=== PATIENT | female | born 1950 | race Caucasian/White ===

== ENCOUNTER 2020-05-08 10:10 | Outpatient (REF) | payer MEDICARE, BC, SELFPAY ==
--- NOTE | 2020-05-08 08:45 | SKI_PTH ---
PATIENT: Dyan Marte [facility]: [facility][id number] AGE/SX: 70/F ROOM: RE05/08/[address]: Elliott Scott : 1950 BED: DIS: 05/08/2020 SPEC #: [id number] RECD: 05/09/20 10:56 STATUS: FIDE REQ #: [id number] JUNAID: 05/08/20 08:[address]: Elliott Scott DEPT: Surgical Specimen RECD BY: Kell Spicer ENTERED: 05/09/20 11:00 SP TYPE: SAMUEL CARO DR: Anne Rai Tissues: 1 - SKIN BIOPSY(SHAVE/PUNCH) Procedures: SKIN LEVEL 4 Comments: [id number]
== END 2020-05-08 10:30 ==
LOC: NCHCN 10:10
PROVIDERS: PCP Nurse Practitioner; Visit Provider Internal Medicine
DX: L28.0 Lichen simplex chronicus (principal)
CPT/HCPCS: 88305

== ENCOUNTER 2022-01-12 20:15 | Outpatient (REF) | payer MEDICARE, BC, SELFPAY ==
[2022-01-12 15:25] LABS: Abs Immature Grans 0.03 10^3/uL (0.0-0.06); Absolute Basophil Count 0.04 10^3/uL (0.0-0.2); Absolute Eosinophil Count 0.14 10^3/uL (0.0-0.7); Absolute Lymphocyte Count 1.19 10^3/uL (1.2-3.4); Absolute Neutrophil Count 5.98 10^3/uL (1.2-6.7); Basophils % 0.5; Eosinophils % 1.8; HCT 36.8 % (36.0-46.0); HGB 12.1 g/dL (11.2-15.7); Immature Grans % 0.4; Lymphocytes % 14.9; MCH 31.6 pg (27.0-33.0); MCHC 32.9 % (32.0-36.0); MCV 96 fL (80-95); MPV 11.3 fL (8.0-11.0); Monocytes % 7.5; Neutrophils % 74.9; Platelet Count 281 10^3/uL (130-400); RBC 3.83 10^6/uL (3.93-5.22); RDW 12.1 % (11.7-14.6); RDW-SD 42.3 fL; WBC 7.98 10^3/uL (4.4-10.8)
[2022-01-12 15:34] LABS: Anion Gap 7.7 mmol/L (3-11); BUN 9 mg/dL (7-18); CO2 30.3 mmol/L (21.0-32.0); CREATININE 0.7 mg/dL (0.55-1.02); Calcium 9.2 mg/dL (8.5-10.1); Chloride 97 mmol/L (98-107); Glucose 107 mg/dL (74-106); Potassium 4.7 mmol/L (3.5-5.1); Sodium 135 mmol/L (136-145)
[2022-01-12 16:49] LABS: ESR 40 mm/hr (0-30)
[2022-01-13 11:28] LABS: Lyme Ab w Rflx to Lyme Confirm Negative (Negative)
[2022-01-14 13:09] LABS: Anaplasma phagocytophilum Negative (Negative); B. miyamotoi PCR Negative (Negative); Babesia divergens/MO-1 Negative (Negative); Babesia duncani Negative (Negative); Babesia microti Negative (Negative); Ehrlichia chaffeensis Negative (Negative); Ehrlichia ewingii/canis Negative (Negative); Ehrlichia muris eauclairensis Negative (Negative)
== END 2022-01-12 20:16 | disposition home or self-care (01) ==
LOC: NCHCN 20:15
PROVIDERS: PCP Nurse Practitioner; Visit Provider Nurse Practitioner Family
DX: R51.9 Headache, unspecified (principal)
CPT/HCPCS: 80048; 85652; 87798; 85025; 86618

== ENCOUNTER → 2022-02-08 00:44 | Outpatient (CLI) | payer MEDICARE, BC, SELFPAY ==
--- OUTSIDE RECORDS SUMMARY | 2022-02-08 00:47 | XMS_ITS | Encounter Summary ---
:1950 Author Organization [facility] Address [address] [place] [address] Care Team Providers Name Role Phone Unavailable Primary Care Provider Unavailable Encounter Details Date Type Department Care Team Description 07/01/2008 Before PRISM Converted [facility] - Franki Rai FNP Visit (Maple) Maple conversion [address] [place], [place] [id number] [place] [address] Social History Tobacco Use Types Packs/Day Years Used Date Never Assessed Sex Assigned at Date Recorded Not on file documented as of this encounter Plan of Treatment Not on filedocumented as of this encounter Procedures Procedure Name Priority Date/Time Associated Diagnosis Comme nts CYTOPATHOLOGY Routine 07/01/2008 0:00 EST Results for this procedure are i n the results section . documented in this encounter Results CYTOPATHOLOGY (07/01/2008 0:00 EST) Pathology Report: CYTOPATHOLOGY REPORT ? [facility] ? LAB Reports generated via electr onic interface contain original data; ? however they are lacking the format of the original report. ? Caution should be taken when reading/interpreting unformatted reports. ? Name: ? JORGE L MARTE ? Accession #: ? [id number] ? : ? 1950 (Age: 58) ??F ?Collect Date: ? 07/01/2008 ? Location: ? [facility] ? Receive Date: ? 07/02/2008 ? Provider: ?FRANKI HES S [employer] FORCES WEAPONS SERGEANT ? Copy to: ? Specimen/Source: ? Pap Test, Source Not Provided, ThinPrep Imaging System ?? with manual evaluation ? Last Menstrual Period: ? 2005 ? Other: ? HPVA - HPV testing requested if ASC-US on the current ThinPrep Pap test. ? SPECIMEN ADEQUACY ? Satisfactory for Eval uation ? - transformation zone compon ent present ? GENERAL CATEGORIZATION ? Negative for Intraepi thelial Lesion or Malignancy ? Document reviewed and electr onically signed by: ? Rui Emmyler, CT( CP) ? Report Date: ??12/11/ 2008 09:48 ? End of Report ? Specimen Performing Organization Address City/State/ZIP Code Phon e Number [facility] [address] [place] [address] SERVICES [facility] [address] [place] [address] documented in this encounter Visit Diagnoses Not on filedocumented in this encounter
--- OUTSIDE RECORDS SUMMARY | 2022-02-08 00:47 | XMS_ITS | Clinical Summary ---
:[address] [facility] Address [address] [place] [address] Care Team Providers Name Role Phone RaiAnne ISABEL Primary Care Provider Encounters Date Type Specialty Care Team Description 01/12/2022 Lab Requisition Clinical Laboratory Outr Resulting Lab , Provider from Last 3 Months Social History Tobacco Use Types Packs/Day Years Used Date Never Assessed Sex Assigned at Date Recorded Not on file Plan of Treatment Health Maintenance Due Date Last Done Comments Fall Risk Screening 2015 Procedures Procedure Name Priority Date/Time Associated Diagnosis Comme nts LYME AB Routine 01/12/2022 10:40 EDT Results for this procedure are i n the results section . from Last 3 Months Results LYME AB (01/12/2022 10:40 EDT) Pathologist Sig nature Lyme Ab Negative Negative [facility] Specimen Blood - Venous blood (substance) Performing Organization Address City/State/ZIP Code Phon e Number [facility] [address] [place] [address] SERVICES from Last 3 Months Insurance Payer Benefit Plan / Subscriber ID Effective Dates Phone Addre ss Type Group MEDICARE MEDICARE A/B [id number] 2015-Presen [id number] [place] [address] [place] [id number] 2019-Presen [address] [place] [address] [place] [address] Care Teams Production Tester Relationship Specialty Start Date End Date Anne Rai FNP PCP - General 05/08/20 [address] [place] [address]
--- OUTSIDE RECORDS SUMMARY | 2022-02-08 00:47 | XMS_ITS | Encounter Summary ---
:1950 Author Organization [facility] Address [address] [place] [address] Care Team Providers Name Role Phone Unavailable Primary Care Provider Unavailable Encounter Details Date Type Department Care Team Description 07/11/2009 Orders Only [facility] Franki Rai FNP Laboratory Services - [place] [address] [address] [place], [place] [address] [phone] Social History Tobacco Use Types Packs/Day Years Used Date Never Assessed Sex Assigned at Date Recorded Not on file documented as of this encounter Plan of Treatment Not on filedocumented as of this encounter Procedures Procedure Name Priority Date/Time Associated Diagnosis Comme nts CYTOPATHOLOGY Routine 07/11/2009 0:00 EST Results for this procedure are i n the results section . documented in this encounter Results CYTOPATHOLOGY (07/11/2009 0:00 EST) Pathology Report: CYTOPATHOLOGY REPORT ? [facility] ? LAB Reports generated via electr onic interface contain original data; ? however they are lacking the format of the original report. ? Caution should be taken when reading/interpreting unformatted reports. ? Name: ? JORGE L MARTE ? Accession #: ? [id number] ? : ? 1950 (Age: 59) ??F ?Collect Date: ? 07/11/2009 ? Location: ? [facility] ? Receive Date: ? 07/15/2009 ? Provider: ?FRANKI HES S BULB ASSEMBLER ? Copy to: ? Specimen/Source: ? Pap Test, Source Not Provided, Blind Pap, ThinPrep ? Imaging System with manual e valuation ? Last Menstrual Period: ? 5 yrs ago ? Other: ? HPVA - HPV testing requested if ASC-US on the current ThinPrep Pap test. ? SPECIMEN ADEQUACY ? Satisfactory for Eval uation ? - transformation zone compon ent present ? GENERAL CATEGORIZATION ? Negative for Intraepi thelial Lesion or Malignancy ? Document reviewed and electr onically signed by: ? Kylah Bethany, CT( CP) ? Report Date: ??12/23/ 2009 10:39 ? End of Report ? Specimen Performing Organization Address City/State/ZIP Code Phon e Number [facility] [address] [place] [address] SERVICES [facility] [address] [place] [address] documented in this encounter Visit Diagnoses Not on filedocumented in this encounter
--- OUTSIDE RECORDS SUMMARY | 2022-02-08 00:47 | XMS_ITS | Encounter Summary ---
:1950 Author Organization [facility] Address [address] [place] [address] Care Team Providers Name Role Phone Anne Rai Primary Care Provider Encounter Details Date Type Department Care Team Description 01/12/2022 Lab Requisition [facility] Outr Resulting Lab, Pathology & Laboratory Provider [facility] [address] [place], [place] [address] Social History Tobacco Use Types Packs/Day Years [...] section . documented in this encounter Results LYME AB (01/12/2022 10:40 EDT) Pathologist Sig nature Lyme Ab Negative Negative [facility] Specimen Blood - Venous blood (substance) Performing Organization Address City/State/ZIP Code Phon e Number [facility] [address] [place] [address] SERVICES documented in this encounter Visit Diagnoses Not on filedocumented in this encounter Care Teams Dental Equipment Installer And Servicer Relationship Specialty Start Date End Date Anne Rai FNP PCP - General 05/08/20 [address] [place], [place] [address] documented as of this encounter
--- OUTSIDE RECORDS SUMMARY | 2022-02-08 00:47 | XMS_ITS | Encounter Summary ---
:1950 Author Organization [facility] Address [address] [place] [address] Care Team Providers Name Role Phone Unavailable Primary Care Provider Unavailable Encounter Details Date Type Department Care Team Description 07/21/2011 Results Only [facility] Franki Rai FNP Laboratory Services - [place] [address] [address] [place], [place] [address] [phone] Social History Tobacco Use Types Packs/Day Years Used Date Never Assessed Sex Assigned at Date Recorded Not on file documented as of this encounter Plan of Treatment Not on filedocumented as of this encounter Procedures Procedure Name Priority Date/Time Associated Diagnosis Comme nts PAP TEST- RESULT Routine 07/21/2011 0:00 EST Resu lts for this ONLY procedure are i n the results section. documented in this encounter Results PAP TEST- RESULT ONLY (07/21/2011 0:00 EST) Pathology Report: CYTOPATHOLOGY REPORT [facility] Reports generated via electronic interface contain mary beth ginal data; however they are lacking the format of the original re port. Caution should be taken when reading/interpreting unfo rmatted reports. Name: ? JORGE L MARTE ? Accession #: ? [id number] : ? 1950 (Age: 61) ??F ?Collect Date: ? 06/25 Location: ? [facility] ? Receive Date : ? 07/22/2011 Provider: ?FRANKI RAI SHIPPING TRACK SUPERVISOR Copy to: ? Specimen/Source: ? Pap Test, Cervix/Endocervix, ThinPrep Imaging System with manual evaluation Last Menstrual Period: ? 2004 ? SPECIMEN ADEQUACY ? Satisfactory for Evaluation - transformation zone component present GENERAL CATEGORIZATION ? Negative for Intraepithelial Lesion or Malignan cy ? Document reviewed and electronically signed by: ? ALVINO Dick(ASCP) ? Report Date: ??07/27/2011 10:59 End of Report Specimen Performing Organization Address City/State/ZIP Code Phon e Number [facility] [address] [place] [address] SERVICES [facility] [address] [place] [address] documented in this encounter Visit Diagnoses Not on filedocumented in this encounter
--- OUTSIDE RECORDS SUMMARY | 2022-02-08 00:47 | XMS_ITS | Encounter Summary ---
:1950 Author Organization [place] [address] Care Team Providers Name Role Phone Elliott Scott MD Primary Care Provider Reason for Visit Reason Comments Skin Check Consultation (Routine) - Closed Specialty Diagnoses / Procedures Referred By Contact Refer red To Contact Dermatology Diagnoses Rash and other nonspecific skin eruption Skin Rash; New Patient-Notes Received Elliott Scott MD Hammer, Charles J, MD Procedures Consult [address] [place] [address] [place] [address] Phone: Fax: Referral ID Status Reason Start Date Expiration Date Visits V isits Requested Authorized [id number] Closed Consult, Test 05/19/2020 05/19/2021 6 6 & Treat PCP Updated and/or Approved Encounter Details Date Type Department Care Team Description 11/06/2020 Office Visit Dermatology at [facility] Selwyn Todd MD [address] [address] [facility] [address] [place] [address] DERMATOLOGY [phone] [place], [place] [address] (Wo rk) Social History Tobacco Use Types Packs/Day Years Used Date Never Smoker Smokeless Tobacco: Never Used Sex Assigned at Date Recorded Not on file documented as of this encounter Progress Notes Selwyn Todd MD - 11/06/2020 8:45 AM EDT Problem: New patient, initial visit, skin rash Dyan is a 70-year-old woman in December or January of last year first noted a red itchy rash on her posterior neck and back and then also had involvement of the forehead extending somewhat onto the malar cheeks the dorsum of the hands on her elbows and knees. She states that she found a tick in her umbilicus and brought this to the attention of Dr. Scott. He prescribed a course of doxycycline although the tick was not engorged and when the patient found and removed it. He also took a punch biopsy from her back which showed a lichenoid/interface dermatitis, but was otherwise nonspecific. Patient states there has been no change in her routine or skin care products. She is on no oral medications. Last summer she had been bitten by more numerous black flies and deer flies and mosquitoes feelingthese were more numerous than usual that summer, but otherwise was on no medications, had not taken any courses of antibiotics prior to the onset of the rash. She is otherwise healthy. She tried treating her rash with honey and apple cider vinegar, and took oral cod liver oil. She does have a history of asthma but no history of significant eczema. There is no family history of prior personal history of psoriasis. She states that currently she has some itching and redness in the back of her scalp but otherwise is asymptomatic and without any rash at the present time. Physical examination confirms that she has no dermatographism or dermatitis on examination of the torso and extremities. She has some mild erythema and some minimal scaling on the lower occipital scalpconsistent with mild seborrheic dermatitis. She has no stigmata of psoriasis. She has no proximal nail fold telangiectasias on her fingernails. Assessment plan: Past history of dermatitis in an almost psoriasiform distribution but with lichenoid interface changes on punch biopsy, now resolved 1. Patient reassured 2. I am unable to make a definitive diagnosis 3. Patiently currently is asymptomatic 4. Recommend that she return to clinic to see me for any recurrence of her rash for another attempt at diagnosis. CC: Elliott Scott MD documented in this encounter Plan of Treatment Not on filedocumented as of this encounter Visit Diagnoses Diagnosis Nevus Benign neoplasm of skin, site unspecifie d documented in this encounter Care Teams Pmo Analyst Relationship Specialty Start Date End Date Elliott Scott MD PCP - General Internal Medicine 11/06/20 [address] [place] [address] documented as of this encounter
--- OUTSIDE RECORDS SUMMARY | 2022-02-08 00:47 | XMS_ITS | Clinical Summary ---
:1950 Author Organization [facility] [place] [address] Care Team Providers Name Role Phone Elliott Scott MD Primary Care Provider Allergies Active Allergy Reactions Severity Noted Date Comments Penicillins Medications No known medications Social History Tobacco Use Types Packs/Day Years Used Date Never Smoker Smokeless Tobacco: Never Used Sex Assigned at Date Recorded Not on file Plan of Treatment Health Maintenance Due Date Last Done Comments Covid-19 Vaccine (#1) 1955 Hepatitis C Screening 02/09/1968 Tdap adult 1969 Tetanus vaccine 1969 Breast Cancer Share Decision Needed 1990 Colonoscopy 1995 Breast Cancer screening 02/09/2000 Zoster vaccine (1 of 2) 02/09/2000 Advance Directive 2005 Bone Density Scan 2015 Pneumoccocal Vaccine: 65+ (1 - PCV) 2015 Influenza (Flu) vaccine (1 of 1 - Influenza standard 03/25/2022 series) Insurance Payer Benefit Plan / Subscriber ID Effective Phone Address T ype Group Dates MEDICARE MEDICARE PART [id number] 2020-Pres [phone] [facility] [address] BLUE CROSS MEDICOMP BCBS [id number] 2019-Prese [address] [facility] [place] [address] [place] [phone] Care Teams Community Assistant Relationship Specialty Start Date End Date Elliott Scott MD PCP - General Internal Medicine 11/06/20 [address] [place], [place] [id number]
--- OUTSIDE RECORDS SUMMARY | 2022-02-08 00:47 | XMS_ITS | Encounter Summary ---
:1950 Author Organization [facility] Address [address] [place] [address] Care Team Providers Name Role Phone Unavailable Primary Care Provider Unavailable Encounter Details Date Type Department Care Team Description 10/31/2000 Results Only [facility] - Claudia Camarillo, BRIDGE IRONWORKER conversion [address] [place] [address] Social History Tobacco Use Types Packs/Day Years Used Date Never Assessed Sex Assigned at Date Recorded Not on file documented as of this encounter Plan of Treatment Not on filedocumented as of this encounter Procedures Procedure Name Priority Date/Time Associated Diagnosis Comme nts CYTOPATHOLOGY Routine 10/31/2000 0:00 EDT Results for this procedure are i n the results section . documented in this encounter Results CYTOPATHOLOGY (10/31/2000 0:00 EDT) Pathology Report: CYTOPATHOLOGY REPORT [facility] Reports generated via electronic interface contain mary beth ginal data; however they are lacking the format of the original re port. Caution should be taken when reading/interpreting unfo rmatted reports. Name: ? JORGE L MARTE ? Accession #: ? [id number] : ? 1950 (Age: 50) ??F ?Collect Date: ? 040 03/2001 Location: ? [facility] ? Receive Date : ? 11/01/2000 Provider: ?CLAUDIA CANADA BRIDGE IRONWORKER Copy to: ? Specimen/Source: ?Conventional Pap Test, Cer vix/Endocervix Last Menstrual Period: ? 10/06/00 Other: ? Additional clinical information: Slide received broken. ??Sufficient cellular material was recovered to render a cytologic evaluatio n. ? SPECIMEN ADEQUACY ? Satisfactory for evaluation. GENERAL CATEGORIZATION ? Within Normal Limits ? Document reviewed and electronically signed by: ? ALVINO Dick(ASCP) ? Report Date: ??11/02/2000 14:44 End of Report Specimen Performing Organization Address City/State/ZIP Code Phon e Number [facility] [address] [place] [address] SERVICES [facility] [address] [place] [address] documented in this encounter Visit Diagnoses Not on filedocumented in this encounter
--- OUTSIDE RECORDS SUMMARY | 2022-02-08 00:47 | XMS_ITS | Encounter Summary ---
:1950 Author Organization [facility] Address [address] [place] [address] Care Team Providers Name Role Phone Anne Rai ISABEL Primary Care Provider Encounter Details Date Type Department Care Team Description 05/09/2020 Lab Requisition [facility] Ирина Scott for other Pathology & MD Elliott general examination Laboratory Medicine - [address] [place], [place] [address] [facility] [id number] [place] [id number] Social History Tobacco Use Types Packs/Day Years Used Date Never Assessed Sex Assigned at Date Recorded Not on file documented as of this encounter Plan of Treatment Not on filedocumented as of this encounter Procedures Procedure Name Priority Date/Time Associated Diagnosis Comme nts SURGICAL PATHOLOGY Today 05/08/2020 8:45 EDT Encounter for o ther Results for this general examination procedur e are in the results section. documented in this encounter Results SURGICAL PATHOLOGY (05/08/2020 8:45 EDT) Final Diagnosis A. SKIN OF BACK, THORACIC REGION, PUNCH BIOPSY: [facility] - Lichenoid/interface dermatitis. See microscopic and comment. [facility] LABORATORY SERVICES Diagnosis Comment Based on morphology [facility] alone, the differential CENTER would include a LABORATORY connective tissue SERVICES disorder or possibly a drug-related lichenoid eruption. Clinical correlation is necessary to narrow the differential. Video Production Coordinator slides of this case were reviewed at the intradepartmental consultation conference. Attestation By the signature below, [facility] Elec tronically the attending physician CENTER sign ed by Judit, certifies that they LABORATORY Hedy Chou MD on have 1) personally SERVICES 0 at 1314 conducted a gross and/or microscopic examination of the described specimen(s), and/or personally interpreted the results of laboratory testing of the described specimen(s), and 2) personally rendered or confirmed the above diagnosis. Microscopic The punch biopsy shows [facility] Description apoptotic keratinocytes CENTER along the junction with LABORATORY scattered patchy SERVICES inflammation and lymphocytic exocytosis. Within the dermis, there is a perivascular and interstitial inflammatory infiltrate of lymphocytes, plasma cells as well as rare eosinophils. Pigment dropout is noted within the superficial dermis. Perivascular inflammation extends into the reticular dermis. Focal perifollicular inflammation is seen. Multiple levels are reviewed. A colloidal iron stain performed and highlights mucin deposition within the superficial reticular dermis. Clinical History Chronic (6 week) skin [facility] rash on back cause CENTER unknown-diffuse brown LABORATORY pigmentation and SERVICES thickened skin Gross Description A. [facility] Received in formalin leigha d with proper patient identification (initials S, J) and thoracic region of back is a punch biopsy of lester-white skin (0.3 cm in diameter and 0.3 cm in depth). Submitted intact in A1. [facility] LABORATORY [facility] [employer](ASCP) 17:24 SERVICES Performing Lab [facility] SERVICES Scanned Images [facility] SERVICES Specimen Tissue - Skin (tissue) specimen (specime n) Performing Organization Address City/State/ZIP Code Phon e Number [facility] [address] [place] [address] SERVICES documented in this encounter Visit Diagnoses Diagnosis Encounter for other general examination documented in this encounter Care Teams Forepart Reducer Relationship Specialty Start Date End Date Anne Rai FNP PCP - General 05/08/20 [address] [place], [place] [id number] documented as of this encounter
--- OUTSIDE RECORDS SUMMARY | 2022-02-08 00:47 | XMS_ITS | Encounter Summary ---
:1950 Author Organization [facility] Address [address] [place] [address] Care Team Providers Name Role Phone Unavailable Primary Care Provider Unavailable Encounter Details Date Type Department Care Team Description 07/12/2006 Results Only [facility] - Franki Cunningham FNP conversion [address] [place] [address] [place] [address] [place] [address] (Wo rk) Social History Tobacco Use Types Packs/Day Years Used Date Never Assessed Sex Assigned at Date Recorded Not on file documented as of this encounter Plan of Treatment Not on filedocumented as of this encounter Procedures Procedure Name Priority Date/Time Associated Diagnosis Comme nts CYTOPATHOLOGY Routine 07/12/2006 0:00 EST Results for this procedure are i n the results section . documented in this encounter Results CYTOPATHOLOGY (07/12/2006 0:00 EST) Pathology Report: CYTOPATHOLOGY REPORT [facility] Reports generated via electronic interface contain mary beth ginal data; however they are lacking the format of the original re port. Caution should be taken when reading/interpreting unfo rmatted reports. Name: ? JORGE L MARTE ? Accession #: ? [id number] : ? 1950 (Age: 56) ??F ?Collect Date: ? 06/24 Location: ? [facility] ? Receive Date : ? 07/14/2006 Provider: ?FRANKI ANURAG SHERIFFS OFFICER Copy to: ? Specimen/Source: ? ThinPrep Pap Test, Cervix/Endocervix, processed on [employer] ThinPrep Imaging System, with manual evaluation Last Menstrual Period: ? 1 1/2 years ago Other: ? HPVA - HPV testing requested if ASC-US on the current ThinPrep Pap test. ? SPECIMEN ADEQUACY ? Satisfactory for Evaluation - transformation zone component present GENERAL CATEGORIZATION ? Negative for Intraepithelial Lesion or Malignan cy ? Document reviewed and electronically signed by: ? ALVINO Leone(ASCP) ? Report Date: ??07/21/2006 16:21 End of Report Specimen Performing Organization Address City/State/ZIP Code Phon e Number [facility] [address] [place] [address] SERVICES [facility] [address] [place] [address] documented in this encounter Visit Diagnoses Not on filedocumented in this encounter
--- NOTE | 2022-02-08 14:45 | DI.MRI_ITS ---
Exam(s) MR BRAIN WO EXAM: MR BRAIN WO CLINICAL HISTORY: MCKEON, R51.9 TECHNIQUE: Multiplanar multisequence MRI of the brain was performed. COMPARISON: No exams were available for comparison FINDINGS: No intracranial hemorrhage, mass or infarct is seen. The ventricles are normal in size. There are no abnormal high signal lesions in the white matter. The vascular flow voids appear intact. The orbits and pituitary are unremarkable as visualized. The there is opacification of the left frontal sinus, left maxillary sinus and multiple ethmoid sinus es. There is mucosal thickening of the right maxillary sinus. Sphenoid sinuses are clear.. The mas toid air cells are clear. IMPRESSION: Chronic sinus disease. DATA REPOSITORY:
== END ==
PROVIDERS: PCP Nurse Practitioner; Visit Provider Nurse Practitioner Family
DX: J32.9 Chronic sinusitis, unspecified (principal)
CPT/HCPCS: 70551

== ENCOUNTER 2022-11-05 00:47 | Outpatient (CLI) | payer MEDICARE, SELFPAY ==
--- NOTE | 2022-11-05 | DI.DEXA_ITS ---
Exam(s) XR DEXA BONE DENSITY W/WO MELINDA EXAM: XR DEXA BONE DENSITY W/WO MELINDA CLINICAL HISTORY: OSTEOPENIA M85.80 MENOPAUSE Z78.0 M85.88 TECHNIQUE: [employer] Flor[employer] Horizon C densitometer analysis of left hip, lumbar spine and left forearm. Lat era survey image of the thoracic and lumbar spine. COMPARISON: Two thousand seven FINDINGS: Lateral view of the thoracic and lumbar spine shows no evidence of compression fractures. Bone mineral density measurements of the lumbar spine correspond to a total T-score of -2.7, in the osteoporotic range. There is been a 9.1 percent decrease in bone mineral density when compared to 10 02. Bone mineral density measurements of the left hip correspond to a total T-score of -2.7. The femora l neck T-score is -2.6, in the osteoporotic range. This represents a 15.6 percent decrease compared to 2006.. The left forearm bone mineral density measurements correspond to a T-score of the distal 3rd of -2.5 , in the osteoporotic range. The forearm was not evaluated on the prior exam.. IMPRESSION: Osteoporosis of the lumbar spine, hip and forearm.
--- NOTE | 2022-11-05 12:40 | DI.MAMMO_ITS ---
Exam(s) MAMMO SCREENING EXAM: MAMMO SCREENING CLINICAL HISTORY: SCREENING MAMMO Z12.31 TECHNIQUE: Mammograms were interpreted according to the usual protocol including computer analysis w [employer] CAD system, tomosynthesis and C-view imaging. COMPARISON: 2009 FINDINGS: The breasts are composed of heterogeneously dense fibroglandular densities, Breast Density category C . No suspicious masses or suspicious microcalcifications are seen. No skin thickening or abnormal axillary lymph nodes are seen. There has been no significant change from prior exam. IMPRESSION: BI-RADS Category 1, Negative mammogram. Yearly screening mammography is recommended. Breast Density Category C, heterogeneously Dense. The mammogram demonstrates the patient's breast tissue is dense. Dense breast tissue is very common a nd is not abnormal but dense breast tissue can make it harder to find cancer on a mammogram. Also, de nse breast tissue may increase breast cancer risk. This information about the result of the mammogram report was provided to the patient to raise their awareness. Use this report when you speak with the patient about their risks for breast cancer, which includes their family history. At that time, you may recommend additional screening tests (Ultrasound or MRI) as they might be useful based on their r isk. A negative radiographic report should not delay biopsy if a dominant or clinically suspicious mass is present. Up to ten percent of cancers are not identified on mammography. A negative report may reinforce clinical impression. Adenosis and dense breasts may obscure an underlying neoplasm. False positive reports average 6 to 10%.
== END 2022-11-05 01:07 ==
LOC: DI 00:47
PROVIDERS: PCP Family Medicine; Visit Provider Nurse Practitioner Family
DX: Z78.0 Asymptomatic menopausal state (principal); M85.88 Other specified disorders of bone density and structure, other site; M85.80 Other specified disorders of bone density and structure, unspecified site; Z12.31 Encounter for screening mammogram for malignant neoplasm of breast
CPT/HCPCS: 77063; 77067; 77080

== ENCOUNTER 2023-09-13 14:14 | Outpatient (REF) | payer MEDICARE, SELFPAY ==
--- OUTSIDE RECORDS SUMMARY | 2023-09-13 14:16 | XMS_ITS | Continuity of Care Document ---
Author Name Unknown Organization [facility] Ambulatory Clinics Address [address] [place] [address] Care Team Providers Care Speech Therapy Assistant Name Role Phone DANTE SAXENA Primary Care Physician Encounter [facility] NBR [id number] Date(s): 10/08/22 - 10/08/22 [facility] Ambulatory [facility] [address] [place] [address]- [place] Patient Care team information Care Team Personnel Name: DANTE SAXENA Position: No Access Member Role: Primary Care Physician Address: Address: [address] [address]
[2023-09-13 21:33] LABS: HCT 36.5 % (36.0-46.0); HGB 12.2 g/dL (11.2-15.7); MCH 31.9 pg (27.0-33.0); MCHC 33.4 % (32.0-36.0); MCV 95 fL (80-95); MPV 11.1 fL (8.0-11.0); Platelet Count 276 10^3/uL (130-400); RBC 3.83 10^6/uL (3.93-5.22); RDW 12.8 % (11.7-14.6); RDW-SD 44.4 fL; WBC 7.44 10^3/uL (4.4-10.8)
[2023-09-13 21:45] LABS: ALT 26 U/L (14-59); AST 30 U/L (15-37); Albumin 3.7 g/dL (3.4-5.0); Alkaline Phosphatase 84 U/L (46-116); Anion Gap 8.6 mmol/L (3-11); BUN 23 mg/dL (7-18); Bilirubin, Total 0.3 mg/dL (0.2-1.0); CO2 27.4 mmol/L (21.0-32.0); CREATININE 0.6 mg/dL (0.55-1.02); Calcium 8.9 mg/dL (8.5-10.1); Calculated LDL 102 mg/dL (<100); Chloride 101 mmol/L (98-107); Cholesterol 219 mg/dL (<200); Estimated GFR 94.72 (mL/min/1.73m2); Glucose 101 mg/dL (74-106); HDL Cholesterol 94 mg/dL (40-60); Potassium 3.8 mmol/L (3.5-5.1); Sodium 137 mmol/L (136-145); Total Protein 6.9 g/dL (6.4-8.2); Triglyceride 115 mg/dL (<150)
[2023-09-13 22:29] LABS: Vitamin D 25 Total 43.5 ng/mL (30-100)
== END 2023-09-13 14:15 | disposition home or self-care (01) ==
LOC: NCHCN 14:14
PROVIDERS: PCP Nurse Practitioner Family; Visit Provider Nurse Practitioner Family
DX: M81.0 Age-related osteoporosis without current pathological fracture (principal); R79.89 Other specified abnormal findings of blood chemistry; Z13.6 Encounter for screening for cardiovascular disorders
CPT/HCPCS: 80053; 80061; 82306; 85027

== ENCOUNTER 2024-09-25 11:34 | Outpatient (CLI) | payer MEDICARE, SELFPAY ==
--- NOTE | 2024-09-25 13:58 | DI.RAD_ITS ---
Exam(s) XR KNEE RT 3V AP,LAT,OMAR EXAM: XR KNEE RT 3V AP,LAT,OMAR CLINICAL HISTORY: PAIN RT KNEE M25.561. TECHNIQUE: 2D digital imaging was performed. Three views. COMPARISON: No exams were available for comparison FINDINGS: BONES: No acute fracture is present. No bony destructive lesion is seen. JOINTS: The knee is normally aligned. The joint spaces are maintained. There is mild spurring at th e articular aspect of the patella. No joint effusion is seen. SOFT TISSUE: Normal. IMPRESSION: Mild degenerative changes. DATA REPOSITORY: RADIATION DOSE DELIVERED:
== END 2024-09-25 11:54 ==
PROVIDERS: PCP Nurse Practitioner Family; Visit Provider Nurse Practitioner Family
DX: M25.561 Pain in right knee (principal)
CPT/HCPCS: 73562

== ENCOUNTER 2024-10-30 15:56 | Outpatient (REF) | payer MEDICARE, SELFPAY ==
[2024-10-30 14:15] LABS: HCT 38.2 % (36.0-46.0); HGB 12.5 g/dL (11.2-15.7); MCHC 32.7 % (32.0-36.0); MCV 98 fL (80-95); MPV 11.4 fL (8.0-11.0); Platelet Count 241 10^3/uL (130-400); RBC 3.91 10^6/uL (3.93-5.22); RDW 12.6 % (11.7-14.6); RDW-SD 45.1 fL; WBC 4.86 10^3/uL (4.4-10.8)
[2024-10-30 14:50] LABS: ALT 24 U/L (14-59); AST 25 U/L (15-37); Albumin 3.7 g/dL (3.4-5.0); Alkaline Phosphatase 86 U/L (46-116); Anion Gap 8.3 mmol/L (3-11); BUN 13 mg/dL (7-18); Bilirubin, Total 0.5 mg/dL (0.2-1.0); CO2 27.7 mmol/L (21.0-32.0); CREATININE 0.6 mg/dL (0.55-1.02); Calcium 9.2 mg/dL (8.5-10.1); Calculated LDL 90 mg/dL (<100); Chloride 107 mmol/L (98-107); Cholesterol 195 mg/dL (<200); Estimated GFR 94.13 (mL/min/1.73m2); Glucose 89 mg/dL (74-106); HDL Cholesterol 98 mg/dL (>or=50); Potassium 4.2 mmol/L (3.5-5.1); Sodium 143 mmol/L (136-145); Total Protein 6.6 g/dL (6.4-8.2); Triglyceride 39 mg/dL (<150); Vitamin D 25 Total 52 ng/mL (30-100)
== END 2024-10-30 15:57 | disposition home or self-care (01) ==
LOC: NCHCN 15:56
PROVIDERS: PCP Nurse Practitioner Family; Visit Provider Family Medicine
DX: Z13.220 Encounter for screening for lipoid disorders (principal); M81.0 Age-related osteoporosis without current pathological fracture; R71.8 Other abnormality of red blood cells
CPT/HCPCS: 80053; 80061; 82306; 85027

== ENCOUNTER 2024-11-08 00:38 | Outpatient (CLI) | payer MEDICARE, SELFPAY ==
--- NOTE | 2024-11-08 | DI.DEXA_ITS ---
Exam(s) XR DEXA BONE DENSITY W/WO MELINDA EXAM: XR DEXA BONE DENSITY W/WO MELINDA CLINICAL HISTORY: Senile osteoporosis, M81.7-[id number] osteoporosis wo current pathological TECHNIQUE: Routine DEXA evaluation of the lumbar spine, hip, or forearm. COMPARISON: CR XR DEXA BONE DENSITY W/WO MELINDA from 11/05/2022 FINDINGS: Performed on a Hologic unit. Lateral image: No compression fracture evident. Lumbar Spine total T-score: -2.4. Prior reading in October 2022 was -2.7 Hip total T-score:-2.4. Prior reading in October 2022 was - 2.7 Independent reading at the level of the femoral neck yields T-score of -2.5. Prior reading in October 2022 was -2.6 Forearm total T-score: -2.5. Prior reading in October 2022 was also -2.5. IMPRESSION: Bone mineral density measures in the osteopenia range for the lumbar spine and osteoporosis for the h ip femoral neck and forearm/wrist.. Fracture risk is moderate-high. Note: Any spine fracture indicates 5x risk for subsequent spine fracture and 2x risk for subsequent h ip fracture. World Health Organization criteria for BMD interpretation classify patients: Normal...... T- Score at or above -1.0 Osteopenic... T- Score between -1.0 and -2.5 Osteoporosis... T-Score at or below -2.5
--- NOTE | 2024-11-08 | DI.MAMMO_ITS ---
Exam(s) MAMMO SCREENING EXAM: MAMMO SCREENING CLINICAL HISTORY: Screening, Z12.31. TECHNIQUE: Bilateral full field digital CC and MLO mammographic images were obtained with 3D tomosyn thesis and utilizing computer aided detection (CAD). COMPARISON: Prior mammogram of October 2022 was reviewed. Prior to that was 2009 and not available. FINDINGS: There has been no significant change in the appearance and distribution of the fibroglandular tissue. There are no new spiculated masses nor malignant appearing microcalcification groups. There is no significant architectural distortion nor skin thickening-retraction. IMPRESSION: No radiographic evidence of malignancy. BI-RADS Category 1 - Negative Breast Density - Category C - Heterogeneously dense Breast density Category C or D implies that the patient has dense breast tissue. Dense breast tissue can make it harder to find cancer on a mammogram. Dense breast tissue is also associated with an incr eased risk of breast cancer. This information about the result of the mammogram report was provided to the patient to raise their awareness. Use this report when you speak with the patient about their risks for breast cancer, which includes their family history. At that time, you may recommend additional screening tests (Ultrasoun d or MRI) as these tests may add significant information. A negative radiographic report should not delay biopsy if a dominant or clinically suspicious mass is present. Up to ten percent of cancers are not identified on mammography. A negative report may reinforce clinical impression. Adenosis and dense breasts may obscure an underlying neoplasm. False positive reports average 6 to 10%. Patient will receive a letter notifying them of these results.
== END 2024-11-08 00:58 ==
LOC: DI 00:38
PROVIDERS: PCP Nurse Practitioner Family; Visit Provider Nurse Practitioner Family
DX: M81.0 Age-related osteoporosis without current pathological fracture (principal); Z12.31 Encounter for screening mammogram for malignant neoplasm of breast
CPT/HCPCS: 77063; 77067; 77080